=== PATIENT | male | born 1960 | race Caucasian/White ===

== ENCOUNTER 2017-07-21 00:18 | Emergency (ER) | payer OTHER ==
[2017-07-21] MEDS ORDERED: Ketorolac 60 MG/2 ML SDV IM ONE (00:34)
[2017-07-21] MEDS ORDERED: Orphenadrine 100 MG Tab.ER PO ONE (00:35)
--- NOTE | 2017-07-21 00:45 | EDM.PDOC ---
ED HPI GENERAL MEDICAL PROBLEM - General Chief Complaint: Back Pain or Injury Stated Complaint: [facility] Time Seen by Provider: 07/21/17 00:22 Source of Information: Reports: Patient History Limitations: Reports: No Limitations - History of Present Illness INITIAL COMMENTS - FREE TEXT/NARRATIVE: This is a 57-year-old male. Apparently about a week ago he pulled or twisted his back and he seemed to aggravate it again so he went to see the chiropractor yesterday who did an adjustment but since that time the lower back seems to have gotten worse and worse. Tonight he started having some spasms in his back and pain down his right leg to his calf and he was unable to move around at home so he comes to the ER by ambulance. He states he's got a history back in 2014 of having left sided pain like this that was thought to be due to his sacroiliac joint. He has had an MRI of his lower back since that time that apparently was normal. His chiropractor told him that his right SI joint is acting up today when he was adjusted. The last time this happened he got a shot in the ER and was placed on prednisone and that seemed to help immensely. He denies any other acute symptoms at this time. He has no saddle anesthesia and no change in bowel or bladder function. Right Lower Back Pain Score (Numeric/FACES): 6 - Related Data Allergies Allergy/AdvReac Type Severity Reaction Status Date / Time No Known Allergies Allergy Verified 07/21/17 00:24 Home Meds: Home Meds Cholecalciferol (Vitamin D3) [Vitamin D3] 1,000 unit PO DAILY 07/21/17 [History] Folic Acid 1 mg PO DAILY 07/21/17 [History] L.acidoph,Paracasei, B.lactis [Probiotic] 1 tab PO DAILY 07/21/17 [History] Lutein [Natural Lutein] 20 mg PO DAILY 07/21/17 [History] Orphenadrine [Norflex] 100 mg PO BID PRN #20 tab.er 07/21/17 [Rx] Thiamine [Vitamin B-1] 100 mg PO DAILY 07/21/17 [History] levETIRAcetam [Levetiracetam] 7.5 ml PO BID 07/21/17 [History] predniSONE [Prednisone] 40 mg PO QAM #5 tablet 07/21/17 [Rx] Past Medical History - Past Health History Medical/Surgical History: Denies Medical/Surgical History Other Musculoskeletal History: left hip pain Neurological History: Reports: Seizure Social & Family History - Tobacco Use Smoking Status *Q: Unknown Ever Smoked ED ROS GENERAL - Review of Systems Review Of Systems: See Below Constitutional: Denies: Fever, Chills HEENT: Reports: No Symptoms Respiratory: Reports: No Symptoms Cardiovascular: Reports: No Symptoms Endocrine: Reports: No Symptoms GI/Abdominal: Reports: No Symptoms : Reports: No Symptoms Musculoskeletal: Reports: Other (As per history of present illness) Skin: Reports: No Symptoms Neurological: Reports: Tingling, Other (Complains of some tingling on the top of his right thigh, from his previous episode on the left side he has got some numbness on the inner side of his left thigh) Psychiatric: Reports: No Symptoms Hematologic/Lymphatic: Reports: No Symptoms ED EXAM,LOWER BACK PAIN/INJURY - Physical Exam Exam: See Below Exam Limited By: No Limitations General Appearance: Alert, WD/WN, No Apparent Distress Eye Exam: Bilateral Eye: Normal Inspection Ears: Normal External Exam Nose: Normal Inspection Throat/Mouth: Normal Inspection, Normal Lips, Normal Voice, No Airway Compromise Head: Normocephalic Neck: Supple Respiratory/Chest: No Respiratory Distress, Lungs Clear, Normal Breath Sounds Cardiovascular: Regular Rate, Rhythm, No Murmur GI/Abdominal: Soft Back Exam: Decreased Range of Motion, Muscle Spasm, Other (Right SI joint tenderness on palpation) Extremities: Normal Inspection Neurological: Alert, Normal Mood/Affect Psychiatric: Normal Affect, Normal Mood Skin Exam: Warm, Dry Course - Vital Signs Last Recorded V/S: Last Vital Signs Temp 98.5 F 07/21/17 00:21 Pulse 90 07/21/17 00:21 Resp 18 07/21/17 00:21 BP 148/81 H 07/21/17 00:21 Pulse Ox 98 07/21/17 00:21 - Orders/Labs/Meds Meds: Medications Discontinued Medications Generic Name Dose Route Start Last Admin Trade Name Freq PRN Reason Stop Dose Admin Ketorolac Tromethamine 60 mg 07/21/17 00:34 07/21/17 00:42 Toradol IM 07/21/17 00:35 60 mg ONETIME ONE Administration Orphenadrine Citrate 100 mg 07/21/17 00:35 07/21/17 00:42 Norflex PO 07/21/17 00:36 100 mg ONETIME ONE Administration - Re-Assessments/Exams Free Text/Narrative Re-Assessment/Exam: 07/21/17 02:01 The patient is feeling much better. Examination of his back reveals tenderness right over the right SI joint. He is not having any spasms in the longer he is able to stand upright though very carefully. He wants to go home now. I will provide some steroids as well as some muscle relaxers for use at home and he is to follow-up with her chiropractor on Sunday for recheck. Departure - Departure Time of Disposition: Disposition: Home, Self-Care 01 Condition: Good Clinical Impression: Inflammation of right sacroiliac joint, Sacroiliitis - Discharge Information Prescriptions: Orphenadrine [Norflex] 100 mg PO BID PRN #20 tab.er PRN Reason: Spasms predniSONE [Prednisone] 40 mg PO QAM #5 tablet Forms: ED Department Discharge Additional Instructions: Use ice or heat to the right SI joint as needed to help with the soreness in the pain, take the medication as needed for spasms, take the prednisone faithfully as soon as you get it, very gentle activity over the weekend and avoid bending or lifting anything, follow-up with your chiropractor on Sunday for recheck, return to the ER if needed
[2017-07-21 02:11] VITALS: BP 112/75
== END 2017-07-21 02:16 | disposition home or self-care (01) ==
LOC: JD.ED 00:18
DX: M46.1 Sacroiliitis, not elsewhere classified (principal)
CPT/HCPCS: 96372; 99283; A9270; J1885